=== PATIENT | female | born 1995 ===

== ENCOUNTER 2016-06-15 22:28 | Emergency (ER) | payer OTHER ==
--- NOTE | 2016-06-15 23:21 | ER NURSING DOCUMENTATION ---
Nurse's Notes [facility] Name:Rebekah Caal Age:21 yrs Sex:Female :1995 Arrival Date:06/15/2016 Time:22:28 Bed4 Private MD: Diagnosis:Non-toxic Overdose Presentation: 06/15 22:37 Presenting complaint: Patient states: has been taking anacin for toothache which lb contains caffeine. pt has taken 6 tabs in last 12 hrs. last dose 5 hrs ago. for past 3 hrs has been feeling like she is "drunk", feeling out of sorts. Transition of care: Home. Notified ED Physician of Rafael Mayberry notified. 22:37 Acuity: JUAN 4 lb 22:37 Method Of Arrival: Walk In Triage Assessment: 22:41 General: Appears in no apparent distress, Behavior is appropriate for age, pleasant. lb Pain: Denies pain. Neuro: Level of Consciousness is awake, alert, Oriented to person, place, time, event, Speech is normal. Historical: - Allergies: No known drug Allergies; none; - Home Meds: 1. None - PMHx: None; - PSHx: None; - Tetanus: < 10 years. - Ebola Screening: : Patient denies exposure to infectious person. Patient denies travel to an Ebola-affected area in the 21 days before illness onset. . - Immunization history: Flu Vaccine None. - Social history: Smoking status: Patient states was never smoker of tobacco. Patient uses alcohol but reports only rare drinking. Screenin:42 Infectious Disease Risk None. Abuse screen: Denies threats or abuse. Denies injuries lb from another. Nutritional screening: No deficits noted. Assessment: 22:42 See Triage Assessment done by same RN. lb Vital Signs: 22:41 BP 137 / 81; Pulse 98; Resp 16; Temp 98.8; Pulse Ox 94% on R/A; Weight 55 kg; Height 5 lb ft. 4 in. (165 cm); Pain 0/10; 22:41 Body Mass Index 20.20 (55.00 kg, 165 cm) lb ED Course: 22:33 Patient arrived in ED. ma1 22:37 Cecelia Leblanc is Primary Nurse. lb 22:40 Triage completed. lb 22:42 Valuables Remains with patient Patient has correct armband on for positive lb identification. Call light in reach. 22:48 Addy Hall MD is Attending Physician. adal Administered Medications: No medications were administered Outcome: 23:17 Discharge ordered by . adal 23:20 Discharged to home ambulatory. lb 23:20 Condition: good 23:20 Discharge Assessment: Patient awake, alert and oriented x 3. No cognitive and/or functional deficits noted. Patient verbalized understanding of disposition instructions. 23:20 Instructed on discharge instructions, follow up and referral plans. 23:20 Patient left the ED. 06/17 11:19 Discharge F/U Call: Spoke with: patient. other: Name: pt states that she is feeling st much better. Signatures: Vicky Campbell, RN Addy Meraz MD MD jm Bollock, Lynda lb Addison, Melissa [facility]
--- NOTE | 2016-06-15 23:21 | ER PHYSICIAN DOCUMENTATION ---
Physician Documentation [facility] Name:Rebekah Caal Age:21 yrs Sex:Female :1995 Arrival Date:06/15/2016 Time:22:28 Bed4 Private MD: Addy Maria Disposition: 06/15/16 23:17 Discharged to Home/Self Care. Impression: Non-toxic Overdose. - Condition is Good. - Discharge Instructions: POISONING Accidental Adult - OVERDOSE, Accidental (Adult). - Medical Reconciliation form form. - Follow up: Private Physician; When: As needed; Reason: Continuance of care. - Problem is new. - Symptoms have improved. HPI: 06/15 23:01 This 21 yrs old /[place] Female presents to ER via Walk In with complaints jm of General Weakness. 23:01 The patient presents to the emergency department with a possible overdose, with a jm possible poisoning. Context: Pt took 6 anacin in 6 hours which means she took 2400mg of ASA. She feels drunk and has not been drinking. . Historical: - Allergies: No known drug Allergies; none; - Home Meds: 1. None - PMHx: None; - PSHx: None; - Tetanus: < 10 years. - Ebola Screening: : Patient denies exposure to infectious person. Patient denies travel to an Ebola-affected area in the 21 days before illness onset. . - Immunization history: Flu Vaccine None. - Social history: Smoking status: Patient states was never smoker of tobacco. Patient uses alcohol but reports only rare drinking. ROS: 23:07 Constitutional: Negative for fatigue, fever. 23:07 ENT: Negative for tinnitus. 23:07 ENT: Positive for dental pain. 23:07 Respiratory: Negative for cough, shortness of breath. 23:07 Neuro: Positive for dizziness, "feels drunk", Negative for tingling. 23:07 All other systems are negative. Exam: 23:07 Constitutional: The patient appears alert, awake, comfortable. 23:07 ENT: Mouth: is normal. 23:07 Cardiovascular: Rate: normal, Rhythm: regular. 23:07 Respiratory: Respirations: normal, Breath sounds: are normal. 23:07 Neuro: Mentation: is normal, Memory: is normal. 23:07 Psych: Behavior/mood is pleasant, cooperative, Affect is calm. Vital Signs: 22:41 BP 137 / 81; Pulse 98; Resp 16; Temp 98.8; Pulse Ox 94% on R/A; Weight 55 kg; Height 5 lb ft. 4 in. (165 cm); Pain 0/10; 22:41 Body Mass Index 20.20 (55.00 kg, 165 cm) lb MDM: 22:48 Patient medically screened. adal 23:00 Data reviewed: vital signs, nurses notes, lab test result(s), drug level(s), adal salicylate, and as a result, I will. Counseling: I had a detailed discussion with the patient and/or guardian regarding: the historical points, exam findings, and any diagnostic results supporting the discharge/admit diagnosis, lab results. ED course: Pt is not at a toxic level. . 23:09 Differential diagnosis: Ingestion/exposure to salicylates. adal 06/15 23:14 Order name: SALICYLATE; Complete Time: 23:17 EDMS Dispensed Medications: No medications were administered Signatures: Addy Hall MD MD jm Bollock, Lynda lb
== END 2016-06-15 23:21 | disposition home or self-care (01) ==
LOC: ER 22:28
DX: T39.011A Poisoning by aspirin, accidental (unintentional), initial encounter (principal); R42 Dizziness and giddiness; K08.89 Other specified disorders of teeth and supporting structures
CPT/HCPCS: 36415; 80307; 99281